=== PATIENT | female | born 1955 | race Caucasian/White ===

== ENCOUNTER → 2017-08-26 08:12 | Outpatient (CLI) | payer MEDICARE, SELFPAY ==
--- NOTE | 2017-08-26 08:44 | CT_ITS ---
STUDY: CT BRAIN WITH AND WITHOUT CONTRAST REASON FOR EXAM: Female, 62 years old. Right-sided headache and blurred vision RADIATION DOSAGE (If Supplied By Facility): CTDIvol = ( 44.99 ) mGy, DLP = ( 1479.73 ) mGycm TECHNIQUE: Transaxial CT imaging of the brain was performed pre and post contrast administration. The examination was performed with intravenous administration of 50mL ml of Isovue 370 contrast material. Individualized dose optimization techniques were used for this CT. COMPARISON: None. FINDINGS: Bilateral lens replacements. There is hyperostosis frontalis internus. Normal size ventricles and extra-axial spaces for the patient's age. Normal white matter tracts of the cerebral hemispheres. Normal basal ganglia and thalami. Normal brainstem. Normal cerebellum. There is no intracranial hemorrhage. There are no findings of an acute ischemic infarction. Normal visualized paranasal sinuses. CT/Brain/Head W/WO Contrast IMPRESSION: No CT evidence of infarct, hemorrhage, or mass. Electronically Signed: Benja Ervin MD at 9:17 EDT Tel , Service support ,
== END ==
PROVIDERS: Family Provider Internal Medicine; PCP Internal Medicine; Visit Provider Surgery
DX: H53.9 Unspecified visual disturbance (principal); R51 Headache
CPT/HCPCS: 70470; Q9967

== ENCOUNTER 2017-08-27 05:21 | Day surgery (SDC) | payer MEDICARE, SELFPAY ==
--- NOTE | 2017-08-27 05:38 | EKG12_ITS ---
Test Reason : PRE OP Blood Pressure : / mmHG Vent. Rate : 061 BPM Atrial Rate : 061 BPM P-R Int : 172 ms QRS Dur : 066 ms QT Int : 402 ms P-R-T Axes : 054 027 029 degrees QTc Int : 404 ms Normal sinus rhythm Low voltage QRS Borderline ECG No previous ECGs available Confirmed by KIMBERLEE SHAFER, ERIC ([id number]), online editor MARCO ANTONIO EPPERSON ([id number] on 08/29/2017 11:17:46 AM Referred By: Caio Panda Confirmed By:ERIC MOHAN MD
[2017-08-27 05:47] VITALS: BP 150/86; PULSE 61; RESP 16; TEMP 36.6; O2SAT 96; BMI 38.4
[2017-08-27 06:16] LABS: Hemoglobin 13.3 g/dl (12.0-15.0); Mean Corp Hgb Conc 32.4 g/gl (32-36); Mean Corpuscular Hgb 31.4 pg (27.0-32.0); Mean Corpuscular Volume 96.9 fL (81-99); Mean Platelet Vol. 10.2 fl (6.2-12.0); Platelet Count 247 K/mm3 (150-450); RBC Distribution Width CV 13.5 % (11.6-14.6); RBC Distribution Width SD 46.6 fl (35.1-43.9); Red Blood Count 4.23 M/mm3 (4.2-5.4); Scan Indicated on CBC? Y/N NO; White Blood Count 8.6 K/mm3 (4.4-11.0)
[2017-08-27 06:34] LABS: Anion Gap 9 (5-15); BUN 25 mg/dL (7-18); BUN/Creat Ratio 24.5 RATIO (10-20); Calcium,Total 8.1 mg/dL (8.5-10.1); Chloride 105 mmol/L (98-107); Creatinine, Serum 1.02 mg/dL (0.55-1.02); EST Glomerular Filtration Rate 58 mL/min (>60); Est Glom Filt Rate - Afr Amer 70 mL/min (>60); Estimated Creatinine Clearance 48.75 ml/min; Glucose 112 mg/dL (74-106); Potassium 3.9 mmol/L (3.5-5.1); Sodium Level 139 mmol/L (136-145)
--- NOTE | 2017-08-27 07:09 | PCM.DC.GS ---
Discharge Diet: Light diet - advance as tolerated - if you have questions about your diet instructions, please talk to you doctor. Discharge Activity: May Drive - May drive in one day please May shower in (days): 1 Lifting Restrictions: 10 pounds Call your doctor if your incision/area has: Continuous Slow Oozing, Sudden Increased Bleeding, Increased Pain/ Swelling, Increased Redness, Foul Smelling Discharge Call your doctor if you observe: Fever of 101 or Higher Suture Line Care: Avoid Pulling/Pushing, Avoid Pinching/Bending Additional Dressing/Incision Instructions:: You may remove your dressing tomorrow and then shower. You may leave the incision open or you may cover it to protect from clothing or while sleeping Additional Instructions: You may resume your xarelto tomorrow if no bleeding is detected Your sutures will dissolve My office will notify you by phone of pathology results as they become available Allergies/Adverse Reactions: Allergies acetaminophen [From Vicodin] Allergy (Verified 08/26/17 11:31) Hives atenolol Allergy (Verified 08/26/17 11:31) Shortness of breath hydrocodone bitartrate [From Vicodin] Allergy (Verified 08/26/17 11:31) Hives meperidine [From Demerol] Allergy (Verified 08/26/17 11:31) Other peanut Allergy (Verified 08/26/17 11:31) Hives shellfish derived Allergy (Verified 08/26/17 11:31) Hives tramadol Allergy (Verified 08/26/17 11:31) Rash lisinopril Adverse Reaction (Mild, Verified 08/26/17 11:31) Other COUGH albuterol [From Combivent] Adverse Reaction (Verified 08/26/17 11:31) Other citalopram Adverse Reaction (Verified 08/26/17 11:31) Other codeine Adverse Reaction (Verified 08/26/17 11:31) Other INTOLERANCE hydroxychloroquine Adverse Reaction (Verified 08/26/17 11:31) Other INTOLERANCE hydroxychloroquine sulfate [From Plaquenil] Adverse Reaction (Verified 08/26/17 11:31) Other INTOLERANCE indapamide [From Lozol] Adverse Reaction (Verified 08/26/17 11:31) Other ipratropium [From Combivent] Adverse Reaction (Verified 08/26/17 11:31) Other morphine Adverse Reaction (Verified 08/26/17 11:31) Other MIGRAINES paroxetine [From Paxil] Adverse Reaction (Verified 08/26/17 11:31) Other sertraline Adverse Reaction (Verified 08/26/17 11:31) Other sucralfate [From Carafate] Adverse Reaction (Verified 08/26/17 11:31) Other Medications to take at Discharge Amitriptyline HCl 100 mg PO QHS 01/24/16 Atorvastatin Calcium [Lipitor] 10 mg PO QHS 01/24/16 Budesonide Aerosol [Pulmicort Respules] 0.5 mg INHALATION DAILY 01/24/16 Celecoxib [Celebrex] 200 mg PO BID 01/24/16 Ipratropium/Albuterol Sulfate [Duoneb] 3 ml INHALATION Q4H.RT PRN 01/24/16 Methotrexate 7.5 mg PO Q7D 01/24/16 Metoprolol Tartrate [Lopressor (beta stephen)] 25 mg PO BID 01/24/16 Omeprazole [Prilosec] 20 mg PO DAILY 01/24/16 Potassium Chloride [K-Dur] 10 meq PO DAILY 01/24/16 Rivaroxaban [Xarelto] 15 mg PO DAILY 01/24/16 Spironolactone [Aldactone] 25 mg PO BID 01/24/16 Sumatriptan Succinate [Imitrex] 100 mg PO .X1 PRN 01/24/16 predniSONE tablet 60 mg PO DAILY 01/24/16 Primary Care Physician: Nixon Gaffney MD [Primary Care Provider] -
--- NOTE | 2017-08-27 07:15 | TEM_PTH ---
PATIENT: KWAN TORRES LOC: [facility] – [place] U#:[id number] AGE/SX: 62/F ROOM: RE08/27/[address]: Dr. Caio Panda MD : [id number] BED: DIS: 08/27/2017 SPEC #: [id number] RECD: 08/27/17 10:50 STATUS: IVANNA CARLOS #: [id number] MILKA: 08/27/17 07:[address]: Caio Panda DEPT: SURGICAL PATHOLOGY RECD BY: Kane Strauss ENTERED: 08/27/17 11:16 SP TYPE: TEMPORAL OTHR DR: Dr. Nixon Gaffney MD Tissues: Temporal region Procedures: Elastin Stain (control) Special Stain Group II Surgery Specimen Level IV HEADER OPERATION: Temporal artery biopsy, right PRE-OP DIAGNOSIS: Temporal arteritis, right TISSUE SUBMITTED: Temporal artery biopsy, right MICROSCOPIC DIAGNOSIS Right temporal artery, biopsy: Negative for giant cell arteritis. Mild intimal hyperplasia. SJ:isaias 08/28/17 COMMENT Elastic stain with matched control is used in the evaluation of the specimen. MICROSCOPIC DESCRIPTION Slides are reviewed. GROSS DESCRIPTION Received in fixative is one container labeled with the patient's name and designated right temporal artery biopsy. The specimen consists of a tubular piece of ashraf-pink soft tissue measuring 3 cm in length and 0.1 cm in diameter. The entire specimen is submitted in one cassette. It will be sectioned at the time of embedding. / KATHLEEN:isaias 08/27/17 TC:5 CPT: 94894, 30282
[2017-08-27] MEDS: Bupivacaine Mpf 0.5% 30 ML VIAL (07:26)
--- NOTE | 2017-08-27 08:25 | OP.PCM_ITS ---
Problem List (1) Temporal arteritis Status: Acute Report of Operation Date of Procedure: 08/27/17 Pre-Operative Diagnosis: Medicine diagnosis of temporal arteritis on the right Post-Operative Diagnosis: Pathology pending Surgery/Procedure Performed:: Right temporal artery biopsy Description of Surgical Findings:: Timeout and informed consent was obtained. 62-year-old female was taken the operating place upon the table. The right gnosticist area was clipper and Betadine prep. She underwent monitored anesthesia care. Clean case no antibiotics required. 1% lidocaine mixed 50-50 with 0.5% Marcaine was used as a local anesthetic. The procedure 10 cc was used. Local was instilled. A longitudinal incision was made directly overlying the right temporal artery sharp dissection carried down through the subcu tissue tediously the dissected free. What was felt to be a 4 cm length was achieved. Side branches were secured with hemoclips. The artery was secured proximally distally with a Hemoclip. Specimen was submitted directly for pathology. Hemostasis was nicely intact. The subdermal tissues were approximated with running subcuticular 5-0 Vicryl and several interrupted 5-0 Vicryl. Skin edges proximate with Dermabond. Telfa and tape dressings applied. Sponge and instrument and needle counts were reported to the surgeon be correct. Blood loss was minimal. No apparent complication. Specimens right temporal artery. Drains none. Blood loss minimal. Caio Panda M.D., F.A.C.S. Type of Anesthesia:: Local MAC Anesthesiologist: Melissa Ruiz
[2017-08-27 08:35] VITALS: BP 139/68; BP 150/86; PULSE 68; RESP 16; TEMP 36.7; O2SAT 94
[2017-08-27 08:40] VITALS: BP 143/74; BP 150/86; PULSE 65; RESP 16; O2SAT 93
[2017-08-27 08:45] VITALS: BP 137/73; BP 150/86; PULSE 65; RESP 14; O2SAT 94
[2017-08-27 08:50] VITALS: BP 138/76; BP 150/86; PULSE 65; RESP 16; TEMP 36.3; O2SAT 93
[2017-08-27] MEDS: Acetaminophen 325 MG Tablet 650 MG PO (09:06)
[2017-08-27 09:39] VITALS: BP 150/86; BP 152/78; PULSE 78; RESP 16; TEMP 36.6; O2SAT 98
== END 2017-08-27 09:42 | disposition home or self-care (01) ==
LOC: SDC 05:23 → AC 05:24
PROVIDERS: Family Provider Internal Medicine; PCP Internal Medicine; Visit Provider Surgery
PROC: (CPT 37609; principal; 2017-08-27 07:00)
DX: M31.6 Other giant cell arteritis (principal); I77.3 Arterial fibromuscular dysplasia; J44.9 Chronic obstructive pulmonary disease, unspecified; M06.9 Rheumatoid arthritis, unspecified; I10 Essential (primary) hypertension; E66.9 Obesity, unspecified; Z68.38 Body mass index [BMI] 38.0-38.9, adult; Z86.718 Personal history of other venous thrombosis and embolism; Z96.653 Presence of artificial knee joint, bilateral; Z79.52 Long term (current) use of systemic steroids; Z79.899 Other long term (current) drug therapy
CPT/HCPCS: 37609; 80048; 85027; 88305; 88313; 93005; J7120; J2405

== ENCOUNTER → 2017-12-10 10:27 | Outpatient (CLI) | payer MEDICARE, SELFPAY ==
--- NOTE | 2017-12-10 10:33 | RAD_ITS ---
STUDY: X-RAY - PELVIS REASON FOR EXAM: Female, 62 years old. Arthropathy TECHNIQUE: One view of the pelvis was obtained. COMPARISON: None. FINDINGS: There is a non-specific bowel gas pattern. There are multiple calcified phleboliths. Normal bilateral iliac wings, sacroiliac joints and visualized sacrum. Normal visualized bilateral superior and inferior pubic rami. Normal pubic symphysis. Normal ischial tuberosities. Normal visualized right femoral head. Normal right acetabulum. Normal right hip joint. There is well-corticated minimal heterotopic bone adjacent to the lesser trochanter. Normal visualized left femoral head. Normal left acetabulum. Normal left hip joint. RAD/Pelvis 1 or 2 Views IMPRESSION: Normal x-ray examination of the pelvis. Electronically Signed: Dottie Tapia MD at 19:54 EDT Tel , Service support ,
[2017-12-10 12:13] LABS: Erythrocyte Sedimentation Rate 11 mm/hr (0-30)
[2017-12-10 12:15] LABS: Absolute Lymphocyte Count 2.37 X10^3/ul (0.83-4.51); Absolute Neutrophil Count 4.8 X10^3/uL (2.0-7.7); Basophil# 0.03 X10^3/uL; Basophil% 0.4 % (0-1); Eosinophil# 0.23 X10^3/uL; Eosinophils% 2.8 % (0-5); Hematocrit 40.6 % (37-47); Hemoglobin 12.9 g/dl (12.0-15.0); Lymphocyte # 2.37 X10^3/ul (4.0); Lymphocyte % 29.3 % (19-41); Mean Corp Hgb Conc 31.8 g/gl (32-36); Mean Corpuscular Hgb 30.5 pg (27.0-32.0); Mean Platelet Vol. 10.6 fl (6.2-12.0); Monocyte# 0.65 X10^3/uL; Neutrophil # 4.78 X10^3/uL (2.7-7.7); Neutrophil % 59.3 % (47-70); Platelet Count 214 K/mm3 (150-450); RBC Distribution Width CV 13.2 % (11.6-14.6); RBC Distribution Width SD 45.7 fl (35.1-43.9); Red Blood Count 4.23 M/mm3 (4.2-5.4); White Blood Count 8.1 K/mm3 (4.4-11.0)
[2017-12-10 12:17] LABS: POSITIVE COUNT NO; POSITIVE DIFFERENTIAL NO; POSITIVE MORPHOLOGY NO
[2017-12-10 12:34] LABS: ALB/GLOB Ratio 0.9 RATIO (0.9-2.4); AST(SGOT) 21 U/L (15-37); Alanine Aminotransfer ALT/SGPT 37 U/L (13-56); Albumin, Serum 3.5 g/dL (3.2-5.0); Alkaline Phosphatase 89 U/L (45-117); Anion Gap 7 (5-15); BUN 19 mg/dL (7-18); BUN/Creat Ratio 21.7 RATIO (10-20); CRP 4.59 mg/L (0.0-3.0); Calcium,Total 8.8 mg/dL (8.5-10.1); Chloride 101 mmol/L (98-107); Creatinine, Serum 0.88 mg/dL (0.55-1.02); EST Glomerular Filtration Rate 69 mL/min (>60); Est Glom Filt Rate - Afr Amer 84 mL/min (>60); Globulin 3.9 g/dL (2.2-4.2); Glucose 82 mg/dL (74-106); Potassium 4.1 mmol/L (3.5-5.1); Protein, Total 7.4 g/dL (6.4-8.2); Rheumatoid Factor < 10.0 IU/mL (<15); Sodium Level 139 mmol/L (136-145)
[2017-12-12 13:13] LABS: ANTINUCLEAR ANTIBODIES DIRECT Negative (Negative)
[2017-12-18 16:08] LABS: QNTFERON TB Ag Minus Nil Value < 0 IU/mL (.); QNTFERON TB Ag Value 0.06 IU/mL (.); QNTFERON TB Mitogen Value 5.86 IU/mL (.); QNTFERON TB Nil Value 0.08 IU/mL (.)
[2017-12-20 08:08] LABS: CCP IgG Antibodies 23 units (0-19); HEPATITIS B SURFACE AG Negative (Negative); HLA B27 Negative (.); Hep B Surface Antibodies Non Reactive (.); Hep C Antibodies <0.1 s/co ratio (0.0-0.9); QNTIFERON TB Gold Negative (Negative)
== END ==
LOC: MTLAB 10:31
PROVIDERS: Family Provider Internal Medicine; PCP Internal Medicine; Referring Provider Internal Medicine Rheumatology; Visit Provider Internal Medicine Rheumatology
DX: L40.59 Other psoriatic arthropathy (principal); Z79.899 Other long term (current) drug therapy; L40.8 Other psoriasis; M79.7 Fibromyalgia; M17.0 Bilateral primary osteoarthritis of knee
CPT/HCPCS: 36415; 72170; 80053; 81374; 85025; 85652; 86038; 86140; 86200; 86431; 86480; 86706; 86803; 87340

== ENCOUNTER 2018-04-04 09:37 | Day surgery (SDC) | payer MEDICARE, SELFPAY ==
[2018-04-04] VITALS (7 sets, daily range): BP systolic 108–124; BP diastolic 69–77; PULSE 68–88; RESP 16–18; TEMP 36.1–36.9; O2SAT 93–97; BMI 34.2
--- NOTE | 2018-04-04 09:50 | RAD_ITS ---
STUDY: X-RAY - ABDOMEN/PELVIS REASON FOR EXAM: Female, 62 years old. History of right renal calculi. TECHNIQUE: Two AP supine views of the abdomen and pelvis. COMPARISON: None. FINDINGS: Normal visualized lung bases. There is an unremarkable bowel gas pattern. There is a 5.4 mm calculus in the lower pole calyx of the right kidney. 2 rounded calcifications are seen in the left hemipelvis most likely representing phleboliths. Normal soft tissue structures. There are diffuse degenerative changes of the visualized lumbar spine. RAD/Abdomen Single View IMPRESSION: 5.4 mm calculus in the lower pole calyx of the right kidney. Electronically Signed: Renny Gonzalez MD at 10:39 EST , Service support ,
[2018-04-04] MEDS: Ipratropium/Albuterol Sulfate 3 ML AMPUL.NEB INHALATION (11:11)
[2018-04-04] MEDS: Cefazolin 2 GM in 0.9% Normal Saline 100 ML IV (11:55)
--- NOTE | 2018-04-04 12:01 | DCINST_ITS ---
Discharge Diet: Light diet - advance as tolerated Discharge Activity: Return to Normal Activity Suture Line Care: Avoid Pulling/Pushing, Avoid Pinching/Bending Instructions: Shock Wave Lithotripsy Allergies/Adverse Reactions: Allergies acetaminophen [From Vicodin] Allergy (Verified 03/28/18 09:38) Hives atenolol Allergy (Verified 03/28/18 09:38) Shortness of breath hydrocodone bitartrate [From Vicodin] Allergy (Verified 03/28/18 09:38) Hives meperidine [From Demerol] Allergy (Verified 03/28/18 09:38) Other peanut Allergy (Verified 03/28/18 09:38) Hives shellfish derived Allergy (Verified 03/28/18 09:38) Hives tramadol Allergy (Verified 03/28/18 09:38) Rash lisinopril Adverse Reaction (Mild, Verified 03/28/18 09:38) Other COUGH albuterol [From Combivent] Adverse Reaction (Verified 03/28/18 09:38) Other citalopram Adverse Reaction (Verified 03/28/18 09:38) Other codeine Adverse Reaction (Verified 08/26/17 11:31) Other INTOLERANCE hydroxychloroquine Adverse Reaction (Verified 08/26/17 11:31) Other INTOLERANCE hydroxychloroquine sulfate [From Plaquenil] Adverse Reaction (Verified 08/26/17 11:31) Other INTOLERANCE indapamide [From Lozol] Adverse Reaction (Verified 08/26/17 11:31) Other ipratropium [From Combivent] Adverse Reaction (Verified 08/26/17 11:31) Other morphine Adverse Reaction (Verified 08/26/17 11:31) Other MIGRAINES paroxetine [From Paxil] Adverse Reaction (Verified 08/26/17 11:31) Other sertraline Adverse Reaction (Verified 08/26/17 11:31) Other sucralfate [From Carafate] Adverse Reaction (Verified 08/26/17 11:31) Other Medications to take at Discharge Amitriptyline HCl 100 mg PO QHS 01/24/16 Atorvastatin Calcium [Lipitor] 10 mg PO QHS 01/24/16 Methotrexate 7.5 mg PO Q7D 01/24/16 Metoprolol Tartrate [Lopressor (beta stephen)] 25 mg PO BID 11/15/16 Omeprazole [Prilosec] 20 mg PO BID 01/24/16 Rivaroxaban [Xarelto] 15 mg PO DAILY 01/24/16 Spironolactone [Aldactone] 25 mg PO BID 01/24/16 Sumatriptan Succinate [Imitrex] 100 mg PO .X1 PRN 01/24/16 Lorazepam [Ativan] 1 mg PO DAILY PRN PRN 03/28/18 Azithromycin [Zithromax] 250 mg PO DAILY 04/04/18 Ibuprofen 600 mg PO Q6H PRN PRN #20 tablet 04/04/18 The following prescriptions were given: Ibuprofen 600 mg PO Q6H PRN PRN #20 tablet PRN Reason: Pain Primary Care Physician: Zee Dasilva MD [Primary Care Provider] - Test Results: Test results from this visit will be discussed in further detail at your follow- up appointment, if applicable. Please Follow Up With: Clay Johnson MD When: please call to make an appointment- with nathen
--- NOTE | 2018-04-04 12:34 | PCM.OPRPT ---
Report of Operation Date of Procedure: 04/04/18 Pre-Operative Diagnosis: Stones in the right lower pole the kidney, renal colic Post-Operative Diagnosis: Same Surgery/Procedure Performed:: Right extracorporeal shockwave lithotripsy Description of Surgical Findings:: Indication is a 62-year-old female is been having off-and-on renal colic on the right side CAT scan was done demonstrates multiple stones in the lower pole the right kidney that we believe is been moving around given her pain or discomfort so we talked about the options of management one would be observation but with the pain she is requesting we treat the stones to see if this will alleviate her pain. 62-year-old female taken back to the operating room at the smooth induction of general anesthesia she was placed supine on the table and then then a dorsolithotomy position we did straight cath the patient emptied her bladder and then we position the patient supine on the table we found the stone in the lower pole of the right kidney stones are fairly faint we then applied 2500 shockwaves at a rate between 9820 power between 5 and 7 kV at the end of the treatment cycle stones were broken up a little tiny pieces no significant fragments were seen Type of Anesthesia:: General Drains: Renal cell - Admit VTE Documentation VTE Present on Admission: No VTE Mechan Device Prophylaxis: SCD's
[2018-04-04] MEDS: Ketorolac 15 MG/ML Vial IV (13:17)
== END 2018-04-04 14:44 | disposition home or self-care (01) ==
LOC: SDC 09:41 → AC 09:48
PROVIDERS: Family Provider Internal Medicine; PCP Internal Medicine; Referring Provider Urology; Visit Provider Urology
PROC: (CPT 50590; principal; 2018-04-04 13:00)
DX: N20.0 Calculus of kidney (principal); Z86.718 Personal history of other venous thrombosis and embolism; Z79.01 Long term (current) use of anticoagulants; Z79.899 Other long term (current) drug therapy; I10 Essential (primary) hypertension; G43.909 Migraine, unspecified, not intractable, without status migrainosus; M79.7 Fibromyalgia
CPT/HCPCS: 00873; 50590; 74018; 94640; J7120; J2405

== ENCOUNTER → 2018-04-24 13:33 | Outpatient (CLI) | payer MEDICARE, SELFPAY ==
[2018-04-04 10:45] VITALS: BMI 34.2
--- NOTE | 2018-04-24 13:35 | RAD_ITS ---
STUDY: X-RAY - ABDOMEN/PELVIS REASON FOR EXAM: Female, 62 years old. Right-sided kidney stone TECHNIQUE: 1 view COMPARISON: None. FINDINGS: Normal visualized lung bases. There is an unremarkable bowel gas pattern. 8mm radiodensity projects over the right kidney region may represent a nephrolith or nephroliths. The visualized liver, spleen and kidneys are grossly normal in size and morphology. Normal soft tissue structures. Normal visualized osseous structures. RAD/Abdomen Single View IMPRESSION: Right-sided nephroliths unchanged Electronically Signed: Jeffery Jorgensen MD at 23:04 EST , Service support ,
== END ==
LOC: RAD.FUTURE 13:33
PROVIDERS: Family Provider Internal Medicine; PCP Internal Medicine; Referring Provider Urology; Visit Provider Urology
DX: N20.0 Calculus of kidney (principal)
CPT/HCPCS: 74018

== ENCOUNTER 2018-07-16 13:43 | Emergency (ER) | payer MEDICARE, SELFPAY ==
[2018-04-04 10:45] VITALS: BMI 34.2
[2018-07-16 13:45] VITALS: BP 131/78; PULSE 60; RESP 16; TEMP 36.4; O2SAT 99; BMI 33.1
--- NOTE | 2018-07-16 14:02 | EKG12_ITS ---
Test Reason : CP Blood Pressure : / mmHG Vent. Rate : 062 BPM Atrial Rate : 062 BPM P-R Int : 154 ms QRS Dur : 074 ms QT Int : 420 ms P-R-T Axes : 021 041 044 degrees QTc Int : 426 ms Normal sinus rhythm Normal ECG Confirmed by ZONIA ANNA ([id number]), newspaper or periodical editor ANUEL MCADAMS ([id number]) on 07/18/2018 10:47:53 AM Referred By: TRACIE Confirmed By:ZONIA ANNA
[2018-07-16] MEDS: LORazepam 2 MG/ML Syringe 0.5 MG IV (14:30)
[2018-07-16] MEDS: 0.9% Normal Saline 1,000 ML 150 ML IV (14:30)
[2018-07-16 14:32] LABS: Bacteria 0 SEEN /hpf (None Seen); Mucous, Urine 0 SEEN /hpf (<or=2+); Red Blood Cells-Urine 0 SEEN /hpf (0-5); White Blood Cells 0 SEEN /hpf (0-5)
[2018-07-16 14:36] LABS: Color, Urine Yellow (Yellow); Glucose, Dipstick Normal (Normal); Ketone-Dipstick Negative (Negative); Leukocyte Esterase-Dipstick Negative /ul (Negative); Nitrite-Dipstick Negative (Negative); Occult Blood-Urine Negative /ul (Negative); Protein-Dipstick Negative (Negative); Specific Gravity, Urine 1.005 (1.002-1.030); Urine Bilirubin Dipstick Negative (Negative); Urine Clarity Sl. Cloudy (Clear); Urine Urobilinogen Normal (Normal)
[2018-07-16 14:39] LABS: Absolute Lymphocyte Count 1.87 X10^3/ul (0.83-4.51); Absolute Neutrophil Count 5.4 X10^3/uL (2.0-7.7); Basophil# 0.01 X10^3/uL; Basophil% 0.1 % (0-1); Eosinophil# 0.11 X10^3/uL; Eosinophils% 1.4 % (0-5); Hematocrit 43.6 % (37-47); Hemoglobin 14.1 g/dl (12.0-15.0); Lymphocyte # 1.87 X10^3/ul (4.0); Lymphocyte % 23.3 % (19-41); Mean Corp Hgb Conc 32.3 g/gl (32-36); Mean Corpuscular Volume 89.7 fL (81-99); Mean Platelet Vol. 10.5 fl (6.2-12.0); Monocyte# 0.58 X10^3/uL; Monocyte% 7.2 % (0-10); Neutrophil # 5.43 X10^3/uL (2.7-7.7); Neutrophil % 67.9 % (47-70); Platelet Count 230 K/mm3 (150-450); RBC Distribution Width CV 13.6 % (11.6-14.6); RBC Distribution Width SD 44.2 fl (35.1-43.9); Red Blood Count 4.86 M/mm3 (4.2-5.4)
[2018-07-16 14:44] LABS: Squamous Epithelial Cells - UA 0-5 SEEN /hpf (5-10)
[2018-07-16 15:05] LABS: Anion Gap 7 (5-15); BUN 10 mg/dL (7-18); BUN/Creat Ratio 9.1 RATIO (10-20); Calcium,Total 9.1 mg/dL (8.5-10.1); Chloride 100 mmol/L (98-107); EST Glomerular Filtration Rate 53 mL/min (>60); Est Glom Filt Rate - Afr Amer 64 mL/min (>60); Estimated Creatinine Clearance 42.74 ml/min; Glucose 88 mg/dL (74-106); Potassium 3.5 mmol/L (3.5-5.1); Sodium Level 138 mmol/L (136-145); Thyroid Stim Hormone (TSH) 0.83 uIU/mL (0.358-3.74)
[2018-07-16 15:10] LABS: POSITIVE COUNT NO; POSITIVE DIFFERENTIAL NO; POSITIVE MORPHOLOGY NO
--- NOTE | 2018-07-16 15:25 | ED.RN ---
[facility] WILL BE IN TO SEE PT
[2018-07-16 15:59] VITALS: BP 121/75; PULSE 64; RESP 22; O2SAT 95
--- NOTE | 2018-07-16 16:16 | ED.VISSUMM ---
- ER Visit Summary Date of Service: 07/16/18 Chief Complaint: Anxiety, panic attacks History of Present Illness: The patient is a 63 F with panic attacks and increased anxiety over the past several months. Patient just started on Cymbalta and is only taken 2 doses. She is scheduled to see the counseling center later this month but states she just felt like she did talk to somebody before that. She did recently refill her Ativan but has not been taking it. Prescription is written for 0.5 mg twice daily as needed. Patient does report a recent weight loss of 67 pounds. She had multiple work-ups including imaging studies with no definitive cause. Patient denies suicidal ideation to me. When asked specifically if anything happened to worsen these panic attacks she denies. Family member spoke to me in the hallway. She states that today is the anniversary of patient's mother's . 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 Physical Examination: Vital signs unremarkable. Patient sitting upright in bed in no acute distress. She is intermittently tearful. Head and neck examination normal. Heart is regular rate and rhythm. Lung sounds are clear. Abdomen is soft with no focal tenderness. Neuro exam is unremarkable. Psychiatric evaluation reveals anxiety with intermittent tearfulness. She denies suicidal ideation. Test Results: EKG is sinus at 62 with no sign of acute ischemia. CBC and chemistry studies unremarkable. Urinalysis normal. TSH normal. Emergency Department Course and Treatment: Patient was given Ativan 0.5 mg IV here. Staff from the counseling center came and evaluated the patient. She is been given information for behavioral health as well as counseling center for close follow-up. She has been given the emergency number if she needs to talk to someone during a panic attack. Treatment Plan: [] Disposition: Discharge Impression: 1. Anxiety This note was generated with [employer] dictation software. It may contain incorrect words, spelling, and punctuation that were not noted in review of the chart prior to signing ED Disposition - Plan for ED Patient: Disposition: Home or Assisted Living Instructions: ED Panic Attack Referrals: Zee Dasilva MD [Primary Care Provider] - Counseling,Center [GROUP OF PHYSICIANS] - Behavioral,Health [facility] [GROUP OF PHYSICIANS] -
--- NOTE | 2018-07-16 16:24 | ED.DCSUM_ITS ---
- ER Visit Summary Date of Service: 07/16/18 Chief Complaint: Anxiety, panic attacks History of Present Illness: The patient is a 63 F with panic attacks and increased anxiety over the past several months. Patient just started on Cymbalta and is only taken 2 doses. She is scheduled to see the counseling c enter later this month but states she just felt like she did talk to somebody before that. She did recently refill her Ativan but has not been taking it. Prescription is written for 0.5 mg twice daily as needed. Patient does report a recent weight loss of 67 pounds. She had multiple work-ups including imaging studies with no definitive cause. Patient denies suicidal ideation to me. When asked specifically if anything happened to worsen these panic attacks she denies. Family member spoke to me in the hallway. She states that today is the anniversary of patient's mother's . 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 Physical Examination: Vital signs unremarkable. Patient sitting upright in bed in no acute distress. She is intermittently tearful. Head and neck examination normal. Heart is regular rate and rhythm. Lung sounds are clear. Abdomen is soft with no focal tenderness. Neuro exam is unremarkable. Psychiatric evaluation reveals anxiety with intermittent tearfulness. She denies suicidal ideation. Test Results: EKG is sinus at 62 with no sign of acute ischemia. CBC and chemistry studies unremarkable. Urinalysis normal. TSH normal. Emergency Department Course and Treatment: Patient was given Ativan 0.5 mg IV here. Staff from the counseling center came and evaluated the patient. She is been given information for behavioral health as well as counseling center for close follow-up. She has been given the emergency number if she needs to talk to someone during a panic attack. Treatment Plan: [] Disposition: Discharge Impression: 1. Anxiety This note was generated with [employer] dictation software. It may contain incorrect words, spelling, and punctuation that were not noted in review of the chart prior to signing ED Disposition - Plan for ED Patient: Disposition: Home or Assisted Living Instructions: ED Panic Attack Referrals: Zee Dasilva MD [Primary Care Provider] - Counseling,Center [GROUP OF PHYSICIANS] - Behavioral,Health [facility] [GROUP OF PHYSICIANS] -
[2018-07-16 16:34] VITALS: BP 140/76; PULSE 60; RESP 18
== END 2018-07-16 16:36 | disposition home or self-care (01) ==
PROVIDERS: Emergency Provider Emergency Medicine; Family Provider Internal Medicine; PCP Internal Medicine
DX: F41.9 Anxiety disorder, unspecified (principal); R63.4 Abnormal weight loss; J44.9 Chronic obstructive pulmonary disease, unspecified; I10 Essential (primary) hypertension; M06.9 Rheumatoid arthritis, unspecified; M31.6 Other giant cell arteritis; Z86.718 Personal history of other venous thrombosis and embolism; Z87.442 Personal history of urinary calculi; Z79.01 Long term (current) use of anticoagulants; Z79.899 Other long term (current) drug therapy
CPT/HCPCS: 80048; 81001; 84443; 85025; 93005; 96361; 96374; 99285; J7030

== ENCOUNTER → 2019-10-02 08:34 | Outpatient (CLI) | payer MEDICARE, OTHER, SELFPAY ==
--- NOTE | 2019-10-02 09:00 | RAD_ITS ---
STUDY: AIR-CONTRAST BARIUM ESOPHAGRAM REASON FOR EXAM: Female, 64 years old. FELL BACK ON DAY. DIFFICULTY SWALLOWING. HX OF SURGERY BANDING AROUND STOMACH. RADIATION DOSAGE (If Supplied By Facility): CTDIvol = ( ) mGy, DLP = ( ) mGycm. Individualized dose optimization techniques were used for this CT.? FLUOROSCOPY TIME (if supplied): ( 1:01 ) minutes/seconds TECHNIQUE: Air-contrast COMPARISON: None. FINDINGS: Swallowing was initiated normally. No nasopharyngeal reflux or aspiration. No Zenker''s diverticulum on the lateral view. Normal peristaltic activity noted in the proximal and mid esophagus. The distal esophagus however demonstrated tertiary contractions, and with patient''s history of previous ERNESTO fundoplication, there is intraesophageal reflux as there is delayed emptying of contrast from the esophagus into the stomach. However, there is no evidence of stricture or hiatal hernia and a 13 mm barium pill passed through the esophagus and the GE junction without difficulty. RAD/Esophagus Dual Contrast IMPRESSION: Presbyesophagus with intraesophageal reflux Electronically Signed: James Ley MD at 9:55 EDT , Service support ,
== END ==
PROVIDERS: PCP Internal Medicine; Referring Provider Surgery; Visit Provider Surgery
DX: R13.10 Dysphagia, unspecified (principal)
CPT/HCPCS: 74220; 74221

== ENCOUNTER → 2019-12-22 10:30 | Outpatient (CLI) | payer MEDICARE, OTHER, SELFPAY | PROVIDERS: PCP Internal Medicine; Referring Provider Nurse Practitioner Primary Care; Visit Provider Nurse Practitioner Primary Care | DX: U07.1 COVID-19 (principal) | CPT/HCPCS: 87635; C9803; U0003 ==

== ENCOUNTER 2021-05-01 10:20 | Emergency (ER) | payer MEDICARE, OTHER, SELFPAY ==
[2021-05-01 10:24] VITALS: BP 138/67; PULSE 73; RESP 17; TEMP 36; O2SAT 100; BMI 38.8
--- NOTE | 2021-05-01 11:30 | ED.VIS.FALL ---
HPI HPI - Fall History of Present Illness Chief Complaint: Fall Narrative Narrative: 65-year-old female presenting with a head injury. Patient states that she fell on her deck about a week ago and she states she fell head long into the railing and knocked herself out. She is unsure how long she was unconscious but has experienced headaches since that time. She also states she feels lightheaded. She vomited initially but has not been vomiting anymore. She states that she did not get evaluated for this earlier but is more concerned now that has been persistent. Patient is on Xarelto. She denies chest pain or shortness of breath. She denies black or bloody stools. She denies coffee-ground emesis or hematemesis. [facility] Medical History COPD (chronic obstructive pulmonary disease) DVT (deep venous thrombosis) HTN (hypertension) Rheumatoid arthritis Temporal arteritis Home Medications atorvastatin 10 mg PO QHS 01/24/16 [History Last Taken Unknown] methotrexate sodium 7.5 mg PO MO 01/24/16 [History Last Taken Unknown] metoprolol tartrate 25 mg PO BID 01/24/16 [History Last Taken 04/04/18 07:00] omeprazole 20 mg PO BID 01/24/16 [History Last Taken 04/04/18 07:00] rivaroxaban 15 mg PO DAILY 01/24/16 [History Last Taken 03/31/18 07:00] spironolactone 25 mg PO BID 01/24/16 [History Last Taken Unknown] sumatriptan succinate 100 mg PO .X1 PRN 01/24/16 [History Last Taken Unknown] lorazepam 1 mg PO DAILY PRN PRN 03/28/18 [History Last Taken 04/04/18 07:00] duloxetine 30 mg PO DAILY 07/16/18 [History Last Taken Unknown] folic acid 1 mg PO DAILY 07/16/18 [History Last Taken Unknown] furosemide 20 mg PO DAILY PRN 07/16/18 [History Last Taken Unknown] valsartan-hydrochlorothiazide 1 ea PO DAILY 07/16/18 [History Last Taken Unknown] ondansetron 4 mg PO Q8H PRN #10 tab 05/01/21 [Rx Last Taken Unknown] Allergy/AdvReac Type Severity Reaction Status Date / Time acetaminophen [From Vicodin] Allergy Hives Verified 05/01/21 10:22 atenolol Allergy Shortness Verified 05/01/21 10:22 of breath hydrocodone bitartrate Allergy Hives Verified 05/01/21 10:22 [From Vicodin] meperidine [From Demerol] Allergy Other Verified 05/01/21 10:22 peanut Allergy Hives Verified 05/01/21 10:22 shellfish derived Allergy Hives Verified 05/01/21 10:22 lisinopril AdvReac Mild Other Verified 05/01/21 10:22 albuterol [From Combivent] AdvReac Other Verified 05/01/21 10:22 citalopram AdvReac Other Verified 05/01/21 10:22 codeine AdvReac Other Verified 05/01/21 10:22 hydroxychloroquine AdvReac Other Verified 05/01/21 10:22 hydroxychloroquine sulfate AdvReac Other Verified 05/01/21 10:22 [From Plaquenil] indapamide [From Lozol] AdvReac Other Verified 05/01/21 10:22 ipratropium [From Combivent] AdvReac Other Verified 05/01/21 10:22 morphine AdvReac Other Verified 05/01/21 10:22 paroxetine [From Paxil] AdvReac Other Verified 05/01/21 10:22 sertraline AdvReac Other Verified 05/01/21 10:22 sucralfate [From Carafate] AdvReac Other Verified 05/01/21 10:22 Family History Brother Heart disease CVA (cerebral vascular accident) Hypertension Sister Asthma Hypertension Mother Colon cancer Surgical History S/P appendectomy S/p bilateral carpal tunnel release S/P cardiac catheterization S/P cholecystectomy S/P colonoscopy S/P hemorrhoidectomy S/P hysterectomy S/P ventral herniorrhaphy Status post bilateral knee replacements Status post revision of total replacement of both knees Social History Smoking Status: Never smoker ROS ROS ED Constitutional Constitutional ED: Denies chills or fever(s) Eyes Eyes: Denies blurry vision ENT ENT ED: Denies rhinorrhea or sore throat Cardiovascular Cardiovascular: Denies chest pain or palpitations Respiratory/Chest Respiratory/Chest: Denies cough, dyspnea or sputum Gastrointestinal Gastrointestinal: Reports nausea and vomiting; Denies abdominal pain Genitourinary Genitourinary ED: Denies dysuria or hematuria Musculoskeletal Musculoskeletal: Denies arthralgias or myalgias Neurologic Neurologic: Reports headache(s); Denies paresthesias Psychiatric Psychiatric: Denies anxiety or depression EXAM Physical Exam Const Vital Signs: 05/01/21 10:24 05/01/21 11:20 05/01/21 14:03 Temperature 96.8 F L Temperature Source Temporal Pulse Rate 73 82 Respiratory Rate 17 18 Respiratory Effort Normal Non-Labored Blood Pressure 138/67 H 122/62 H Blood Pressure Mean 90 Pulse Ox 100 Oxygen Delivery Method Room Air Room Air Positive well nourished and obese General Appearance ED: NAD Nutritional Appearance: obese HEENT Reports normocephalic and TM's normal bilaterally atraumatic Eyes PERRL and EOMs intact bilaterally Neck Neck Narrative: No midline spinal tenderness, deformity, step-off. Chest Wall inspection of chest normal and palpation of chest normal Resp normal respiratory effort and clear to auscultation bilaterally Cardio regular rate and regular rhythm Extremity normal to inspection Neuro oriented x3, CN's II-XII intact bilaterally, moves all extremities, no focal motor deficits and no sensory deficits noted Sensorium / Orientation: alert Psych mental status grossly normal and thought process normal Skin Lesions: no lesions Rashes: no rashes MDM MDM MDM Narrative Medical decision making narrative: Patient presenting with headache that she had for several days after falling and being knocked out slipping on ice. Patient does have a history of migraine. Has no external signs of trauma. No focal neurologic deficits. Patient is on Xarelto. I obtained CT imaging of the brain and cervical spine which are negative for acute findings. Patient feels better after being treated with Reglan and Benadryl. She wishes to be discharged home at this time. She was given return precautions. I do believe she likely has. And lightheadedness. She is counseled on this. Impression: 1. Mechanical fall 2. Closed head injury 3. Concussion Radiography Diagnostic Testing: Clinical Impression(s) from Imaging Studies Cervical Spine CT 05/01/21 11:32 IMPRESSION: Straightening of the normal lordotic curvature possibly from muscular spasm. Electronically Signed: Joshua Mcclain MD at 12:29 EST , Brain CT 05/01/21 12:06 IMPRESSION: Chronic involutional changes of the brain. Electronically Signed: Renny Gonzalez MD at 12:43 EST , Discharge Plan Triage Chief Complaint: Fall ED Provider: Jai Damon Dx/Rx/DC Orders Instructions: ED Concussion Prescriptions: New ondansetron 4 mg tablet,disintegrating 4 mg PO Q8H PRN (Reason: nausea and vomiting) Qty: 10 RF: 0 No Action atorvastatin 10 MG tablet 10 mg PO QHS RF: 0 sumatriptan succinate 100 MG tablet 100 mg PO .X1 PRN RF: 0 spironolactone 25 MG tablet 25 mg PO BID RF: 0 methotrexate sodium 2.5 MG tablet 7.5 mg PO MO RF: 0 omeprazole 20 MG capsule 20 mg PO BID RF: 0 metoprolol tartrate 25 MG tablet 25 mg PO BID RF: 0 rivaroxaban 15 MG tablet 15 mg PO DAILY RF: 0 lorazepam 1 MG tablet 1 mg PO DAILY PRN PRN (Reason: Anxiety) RF: 0 folic acid 1 MG tablet 1 mg PO DAILY RF: 0 furosemide 20 MG tablet 20 mg PO DAILY PRN (Reason: edema) RF: 0 valsartan-hydrochlorothiazide 1 EACH tablet 1 ea PO DAILY RF: 0 duloxetine 30 MG capsule 30 mg PO DAILY RF: 0 Primary Care Provider: Chloe De La Rosa Referrals: Chloe De La Rosa MD [Primary Care Provider] - Disposition Disposition: Home, Self Care Discharge Date/Time: 05/01/21 14:04
--- NOTE | 2021-05-01 11:32 | CT_ITS ---
STUDY: CT CERVICAL SPINE WITHOUT CONTRAST REASON FOR EXAM: Female, 65 years old. neck pain RADIATION DOSAGE (If Supplied By Facility): CTDIvol = ( 28.65 ) mGy, DLP = ( 600.07 ) mGycm TECHNIQUE: High resolution transaxial imaging was performed without contrast material. Sagittal and coronal images were reconstructed. Individualized dose optimization techniques were used for this CT. COMPARISON: None FINDINGS: Normal craniovertebral junction. Normal anterior atlantoaxial articulation. Normal odontoid process. There is straightening of the normal cervical lordosis. Normal vertebral bodies and posterior osseous elements. C2-3: Normal endplates. Normal disc height and morphology. Normal central canal and intervertebral neuroforamina. C3-4: Normal endplates. Normal disc height and morphology. Normal central canal and intervertebral neuroforamina. C4-5: Normal endplates. Normal disc height and morphology. Normal central canal and intervertebral neuroforamina. C5-6: Normal endplates. Normal disc height and morphology. Normal central canal and intervertebral neuroforamina. C6-7: Normal endplates. Normal disc height and morphology. Normal central canal and intervertebral neuroforamina. C7-T1: Normal endplates. Normal disc height and morphology. Normal central canal and intervertebral neuroforamina. Normal visualized soft tissue structures. CT/Spine Cervical without Contras IMPRESSION: Straightening of the normal lordotic curvature possibly from muscular spasm. Electronically Signed: Joshua Mcclain MD at 12:29 EST ,
[2021-05-01] MEDS: DiphenhydrAMINE 50 MG/ML Syringe 25 MG IV (11:43)
[2021-05-01] MEDS: Metoclopramide 10 MG/2 ML Vial IV (11:43)
--- NOTE | 2021-05-01 12:06 | CT_ITS ---
STUDY: CT BRAIN WITHOUT CONTRAST REASON FOR EXAM: Female, 65 years old. Headache RADIATION DOSAGE (If Supplied By Facility): CTDIvol = ( 44.99 ) mGy, DLP = ( 812.98 ) mGycm TECHNIQUE: Transaxial CT imaging of the brain was performed without administration of intravenous contrast material. Individualized dose optimization techniques were used for this CT. COMPARISON: Comparison is made with prior study dated 08/26/2017. FINDINGS: Normal soft tissue structures. Normal calvarium. There is mild cerebral atrophy with widening of the extra-axial spaces and ventricular dilatation. There are areas of decreased attenuation within the white matter tracts of the supratentorial brain, consistent with microvascular disease changes. Normal basal ganglia and thalami. Normal brainstem. Normal cerebellum. There is no intracranial hemorrhage. There are no findings of an acute ischemic infarction. Atherosclerotic calcification of the cavernous portions of the internal carotid arteries. Normal visualized paranasal sinuses. CT/Brain/Head without Contrast IMPRESSION: Chronic involutional changes of the brain. Electronically Signed: Renny Gonzalez MD at 12:43 EST ,
[2021-05-01 14:03] VITALS: BP 122/62; PULSE 82; RESP 18
== END 2021-05-01 14:04 | disposition home or self-care (01) ==
PROVIDERS: Emergency Provider Student in an Organized Health Care Education/Training Program; PCP Internal Medicine; Visit Provider Student in an Organized Health Care Education/Training Program
DX: S06.0X0A Concussion without loss of consciousness, initial encounter (principal); M31.6 Other giant cell arteritis; M06.9 Rheumatoid arthritis, unspecified; J44.9 Chronic obstructive pulmonary disease, unspecified; I10 Essential (primary) hypertension; W00.0XXA Fall on same level due to ice and snow, initial encounter; Z86.718 Personal history of other venous thrombosis and embolism; Z79.01 Long term (current) use of anticoagulants; Z79.899 Other long term (current) drug therapy; E66.9 Obesity, unspecified; Z68.38 Body mass index [BMI] 38.0-38.9, adult
CPT/HCPCS: 70450; 72125; 96374; 96375; 99284; A4216

== ENCOUNTER 2021-11-27 11:39 | Emergency (ER) | payer MEDICARE, OTHER, SELFPAY ==
[2021-11-27 11:40] VITALS: BP 156/82; PULSE 67; RESP 16; TEMP 36.4; BMI 36.7
--- NOTE | 2021-11-27 13:40 | CT_ITS ---
INDICATION: headache EXAMINATION: CT BRAIN - CT Head or Brain W/O Contrast Injection TECHNIQUE: Multiple axial images were obtained of the head without intravenous contrast. A radiation dose optimization technique was used for this scan. IV Contrast dosage and agent: None. COMPARISON: 05/01/2021 FINDINGS: BRAIN PARENCHYMA: No intra- or extra-axial hemorrhage. No evidence of acute infarct. . Unremarkable alvarez-white matter differentiation, no evidence of territorial infarct is seen. Posterior fossa structures are unremarkable. No evidence of intracranial mass or mass effect. No evidence of midline shift is seen. CSF SPACES: Prominence of the ventricles and sulci demonstrates no significant change in comparison to the prior study.. No hydrocephalus. Basal cisterns are patent. CALVARIUM, SKULL BASE, PARANASAL SINUSES AND MASTOID AIR CELLS: Clear. No discrete lytic or blastic abnormalities. ORBITS: Both globes, extraocular muscles, optic nerves and retrobulbar fat appear unremarkable. ASPECTS Score for Acute Strokes: 10 CT/Brain/Head without Contrast IMPRESSION: No evidence of acute intracranial pathology is seen. Electronically Signed: Caleb Palafox MD at 14:39 EDT ,
--- NOTE | 2021-11-27 13:43 | EX.ED.VIS.HA ---
HPI History of Present Illness Chief Complaint: Head Injury Narrative Narrative: 66-year-old female presenting with headache. Apparently she had a head injury initially described as 8. And has been having memory issues and intermittent headaches since that time. She had a head CT performed which was negative. Patient is followed up with her outpatient primary care Dr. De La Rosa who she states has done blood work a few times and has not found anything. She just had lab work done 2 days ago. She does not know the results. Her sister is accompanying her and states that she is the power of business attorney now and she is just taking off the layers of this onion over the last month. I asked her what what that means and she became very upset and said that she does not know what my sister has been through. Apparently her sister has been taking care of herself and she did not even know she had a head CT until recently. She states that her sister has had memory issues and has been having difficulty telling time and keeping her medication straight. She was recently started on donepezil out of concern for dementia. Patient has not had any more trauma to her head. Her sister states she has a neurology appointment in February which is the earliest. She has not been prescribed any headache medicine for pain outpatient. She has not had any fever, chills. She is not dizzy. The patient does express that she has nausea. [facility] Medical History COPD (chronic obstructive pulmonary disease) DVT (deep venous thrombosis) HTN (hypertension) Rheumatoid arthritis Temporal arteritis Home Medications atorvastatin 10 mg tablet 10 mg PO QHS 01/24/16 [History Last Taken Unknown] methotrexate sodium 2.5 mg tablet 7.5 mg PO MO 01/24/16 [History Last Taken Unknown] metoprolol tartrate 25 mg tablet 25 mg PO BID 01/24/16 [History Last Taken 04/04/18 07:00] omeprazole 20 mg capsule,delayed release 20 mg PO BID 01/24/16 [History Last Taken 04/04/18 07:00] rivaroxaban 15 mg tablet 15 mg PO DAILY 01/24/16 [History Last Taken 03/31/18 07:00] spironolactone 25 mg tablet 25 mg PO BID 01/24/16 [History Last Taken Unknown] sumatriptan succinate 100 mg tablet 100 mg PO .X1 PRN 01/24/16 [History Last Taken Unknown] lorazepam 1 mg tablet 1 mg PO DAILY PRN PRN Anxiety 03/28/18 [History Last Taken 04/04/18 07:00] duloxetine 30 mg capsule,delayed release 30 mg PO DAILY 07/16/18 [History Last Taken Unknown] folic acid 1 mg tablet 1 mg PO DAILY 07/16/18 [History Last Taken Unknown] furosemide 20 mg tablet 20 mg PO DAILY PRN edema 07/16/18 [History Last Taken Unknown] valsartan 160 mg-hydrochlorothiazide 25 mg tablet 1 ea PO DAILY 07/16/18 [History Last Taken Unknown] ondansetron 4 mg disintegrating tablet 4 mg PO Q8H PRN nausea and vomiting #10 tabs 05/01/21 [Rx Last Taken Unknown] Allergy/AdvReac Type Severity Reaction Status Date / Time acetaminophen [From Vicodin] Allergy Hives Verified 11/27/21 11:44 atenolol Allergy Shortness Verified 11/27/21 11:44 of breath hydrocodone bitartrate Allergy Hives Verified 11/27/21 11:44 [From Vicodin] meperidine [From Demerol] Allergy Other Verified 11/27/21 11:44 peanut Allergy Hives Verified 11/27/21 11:44 shellfish derived Allergy Hives Verified 11/27/21 11:44 lisinopril AdvReac Mild Other Verified 11/27/21 11:44 albuterol [From Combivent] AdvReac Other Verified 11/27/21 11:44 citalopram AdvReac Other Verified 11/27/21 11:44 codeine AdvReac Other Verified 11/27/21 11:44 hydroxychloroquine AdvReac Other Verified 11/27/21 11:44 hydroxychloroquine sulfate AdvReac Other Verified 11/27/21 11:44 [From Plaquenil] indapamide [From Lozol] AdvReac Other Verified 11/27/21 11:44 ipratropium [From Combivent] AdvReac Other Verified 11/27/21 11:44 morphine AdvReac Other Verified 11/27/21 11:44 paroxetine [From Paxil] AdvReac Other Verified 11/27/21 11:44 sertraline AdvReac Other Verified 11/27/21 11:44 sucralfate [From Carafate] AdvReac Other Verified 11/27/21 11:44 Family History Brother Heart disease CVA (cerebral vascular accident) Hypertension Sister Asthma Hypertension Mother Colon cancer Surgical History S/P appendectomy S/p bilateral carpal tunnel release S/P cardiac catheterization S/P cholecystectomy S/P colonoscopy S/P hemorrhoidectomy S/P hysterectomy S/P ventral herniorrhaphy Status post bilateral knee replacements Status post revision of total replacement of both knees Social History Smoking Status: Never smoker ROS ROS ED Constitutional Constitutional ED: Denies chills or fever(s) Eyes Eyes: Denies change in vision or diplopia ENT ENT ED: Denies rhinorrhea or sore throat Cardiovascular Cardiovascular: Denies chest pain or palpitations Respiratory/Chest Respiratory/Chest: Denies cough or dyspnea Gastrointestinal Gastrointestinal: Reports nausea; Denies abdominal pain or vomiting Genitourinary Genitourinary ED: Denies dysuria or hematuria Musculoskeletal Musculoskeletal: Denies arthralgias, back pain or neck pain Integumentary Denies abscess Neurologic Neurologic: Reports headache(s); Denies paresthesias Psychiatric Psychiatric: Reports anxiety EXAM Physical Exam Const Vital Signs: 11/27/21 11:40 11/27/21 15:00 Temperature 97.6 F L Temperature Source Temporal Pulse Rate 67 78 Respiratory Rate 16 18 Blood Pressure 156/82 H 148/78 H Blood Pressure Mean 106 101 Pulse Ox 97 Oxygen Delivery Method Room Air Room Air Positive well nourished General Appearance ED: NAD; Negative for pallor HEENT Reports normocephalic and moist mucous membranes atraumatic Eyes PERRL and EOMs intact bilaterally Resp normal respiratory effort and clear to auscultation bilaterally Auscultation: Negative for rales, rhonchi or wheezes Cardio regular rate and regular rhythm GI non-tender Neuro oriented x3 and CN's II-XII intact bilaterally Neuro Narrative: No focal neurologic deficits. Sensorium / Orientation: awake and alert Speech: speech normal Motor Exam: strength 5/5 throughout Skin General Skin Exam: Negative for jaundice or pallor MDM MDM MDM Narrative Medical decision making narrative: Patient presenting with her sister for evaluation of headache which was reported to be since June but after discussion her last CT was done in April. This was after a fall and head injury. She had chronic headaches since then. She has been evaluated for this and her sister states she is supposed to have an outpatient MRI. It is reported that there is concern for new onset dementia given her memory issues and confusion. Patient had blood work done just 2 days ago. Her CBC showed a normal white blood cell count 8.14. Her hemoglobin and hematocrit were 13.7 and 43.1 respectively. Platelets were normal at 240. The rest of her CBC was normal. Her CMP showed normal LFTs. Her creatinine was 1.11. Her BUN was 22. Sodium 139, potassium 4.1, chloride 99, CO2 25, anion gap 15. B12 level was normal. Patient was medicated with Reglan 10 mg IV and Benadryl 5 mg. It is noted that the patient is on Xarelto for history of DVT and I will obtain a CT of the brain. I had a long discussion with the patient and her sister and ask what the plan would be for follow-up if we do not find anything abnormal since we have not found anything yet and all of her work-ups. At this point the sister became very angry and hostile. She keeps stomping around the room yelling. I told her that I was not trying to be rude but we needed to come up with a plan if she is having confusion and confusing her meds. I asked specifically does she need placement in a nursing facility to keep her stay and both of them became angry at this point. I assured them that I was not trying to be rude and that I was trying to come up with a plan for them since everything they had done so far had not revealed the source of the problem. The patient's sister then became mad and was angry about how the IV was placed because she was a flight medic and had trained people and it was not performed as accurate as she would have done. Then she started crying and stating that the patient's primary care physician should be coming up with a plan. To which I agreed with her and stated that I would speak to her primary care physician and after we help her with headache and nausea obtain a CT brain. Nursing staff) going to talk to the patient and his sister. CT brain interpreted as negative. This was interpreted by the radiologist and reviewed by myself. Patient was then treated with Toradol. I attempted to page Dr. De La Rosa she has not returned my call. I will try to speak with the on-call physician Dr. Sosa. Impression: 1. Headache 2. History of dementia. Lab Data Attestation: I reviewed the patient's lab results. Radiography Diagnostic Testing: Clinical Impression(s) from Imaging Studies Brain CT 11/27/21 13:40 IMPRESSION: No evidence of acute intracranial pathology is seen. Electronically Signed: Caleb Palafox MD at 14:39 EDT , Discharge Plan Triage Chief Complaint: Head Injury ED Provider: Jai Damon Dx/Rx/DC Orders Instructions: Self-Care for Headaches Prescriptions: No Action atorvastatin 10 MG tablet 10 mg PO QHS sumatriptan succinate 100 MG tablet 100 mg PO .X1 PRN Label Comments: for migraines spironolactone 25 MG tablet 25 mg PO BID methotrexate sodium 2.5 MG tablet 7.5 mg PO MO Label Comments: Q Saturday, omeprazole 20 MG capsule 20 mg PO BID metoprolol tartrate 25 MG tablet 25 mg PO BID rivaroxaban 15 MG tablet 15 mg PO DAILY lorazepam 1 MG tablet 1 mg PO DAILY PRN PRN (Reason: Anxiety) folic acid 1 MG tablet 1 mg PO DAILY furosemide 20 MG tablet 20 mg PO DAILY PRN (Reason: edema) valsartan-hydrochlorothiazide 1 EACH tablet 1 ea PO DAILY duloxetine 30 MG capsule 30 mg PO DAILY ondansetron 4 mg tablet,disintegrating 4 mg PO Q8H PRN (Reason: nausea and vomiting) Qty: 10 0RF Primary Care Provider: Chloe De La Rosa Referrals: Chloe De La Rosa MD [Primary Care Provider] - Disposition Disposition: Home, Self Care
[2021-11-27] MEDS: 0.9% Normal Saline 1,000 ML 999 ML IV (13:49)
[2021-11-27] MEDS: DiphenhydrAMINE 50 MG/ML Syringe 25 MG IV (13:49)
[2021-11-27] MEDS: Metoclopramide 10 MG/2 ML Vial IV (13:49)
--- NOTE | 2021-11-27 14:27 | ED.RN ---
rose regalado into see pt.
[2021-11-27 15:00] VITALS: BP 148/78; PULSE 78; RESP 18; O2SAT 97
[2021-11-27] MEDS: Ketorolac 15 MG/ML Vial IV (15:14)
--- NOTE | 2021-11-27 15:47 | NURSING ---
1440 ON HOLD WITH [facility] [address] DO [address] DO [id number] DO
[2021-11-27 16:12] VITALS: RESP 18
== END 2021-11-27 16:14 | disposition home or self-care (01) ==
PROVIDERS: Emergency Provider Student in an Organized Health Care Education/Training Program; PCP Internal Medicine; Visit Provider Student in an Organized Health Care Education/Training Program
DX: R51.9 Headache, unspecified (principal); F03.90 Unspecified dementia, unspecified severity, without behavioral disturbance, psychotic disturbance, mood disturbance, and anxiety; Z86.718 Personal history of other venous thrombosis and embolism
CPT/HCPCS: 70450; 96361; 96374; 96375; 99283; J7030